=== PATIENT | female | born 1930 | race Caucasian/White ===

== ENCOUNTER 2016-07-16 11:55 | Observation (INO) | payer OTHER ==
[~2016-07-16] VITALS: Ht 162.6 cm; Wt 59.0 kg
[~2016-07-16 11:55] MED LIST: AMLO5TAB2 PO; ASPI-231 PO; CLON0.1T PO; LOVA40TA72 PO; MET50T PO; NITR-48 PO; ONDA4TAB8 SL
[2016-07-16 12:43] LABS: Basophils # (auto) 0 uL; Basophils % (auto) 0.3 % (0.0-2.0); Eosinophils # (auto) 0.1 uL; Eosinophils % (auto) 1.6 % (0.0-7.0); Hematocrit 28.4 % (36.0-46.0); Hemoglobin 9.4 g/dL (12.2-16.2); Lymphocytes # (auto) 1.5 uL; Mean Corpuscular Hemoglobin 29.4 pg (28.0-32.0); Mean Corpuscular Hgb Conc. 33.1 g/dL (32.0-36.0); Mean Corpuscular Volume 88.8 fL (80.0-100.0); Mean Platelet Volume 8.2 fL (7.4-10.4); Monocytes # (auto) 0.4 uL; Monocytes % (auto) 5.6 % (0.0-12.0); Neutrophils # (auto) 5.3 uL; Neutrophils % (auto) 72.5 % (37.0-80.0); Platelet Count (auto) 352 10^3/uL (140-450); Red Cell Distribution Width 15.4 % (11.6-16.0); White Blood Cell 7.3 10^3/uL (4.4-10.8)
[2016-07-16 13:04] LABS: Albumin 2.6 g/dL (3.4-5.0); Alkaline Phosphatase 75 U/L (45-117); Anion Gap 11 (5-15); Aspartate Aminotransferase 18 U/L (15-37); BUN/Creatinine Ratio 20.8; Bilirubin, Total 0.3 mg/dL (0.2-1.0); Blood Urea Nitrogen 20 mg/dL (7-18); Calcium 8.6 mg/dL (8.5-10.1); Carbon Dioxide 25 mmol/L (21-32); Chloride 107 mmol/L (98-107); GFR African American 71 mL/min; GFR Non-African American 59 mL/min; Glucose 103 mg/dL (74-106); Magnesium 2.2 mg/dL (1.6-2.6); Potassium 4.3 mmol/L (3.5-5.1); Sodium 143 mmol/L (136-145); Total Protein 6.4 g/dL (6.4-8.2)
[2016-07-16] MEDS ORDERED: ASPirin 81 mg TAB PO ONE (13:15)
[2016-07-16 14:11] LABS: INR 0.99 (0.9-1.15); Partial Thromboplastin Time 25.2 sec (22.64-33.71); Prothrombin Time 10.7 sec (9.37-12.3)
[2016-07-16 14:58] LABS: B-Type Natriuretic Peptide 268.93 pg/mL (0-100)
[2016-07-16 17:30] VITALS: BP 161/41
== END 2016-07-16 17:25 | disposition home or self-care (01) | DRG 204 ==
LOC: ER 11:55 → EDUNIT# 11:55 → EDBD 11:55 → OVERFLOW 13:09 → ER 17:25
PROVIDERS: ADMIT Family Medicine; ATTEND Family Medicine
DX: R06.02 Shortness of breath (principal); J44.9 Chronic obstructive pulmonary disease, unspecified; E78.5 Hyperlipidemia, unspecified; I10 Essential (primary) hypertension; I25.2 Old myocardial infarction; M85.80 Other specified disorders of bone density and structure, unspecified site; D50.9 Iron deficiency anemia, unspecified; R91.8 Other nonspecific abnormal finding of lung field; Z90.710 Acquired absence of both cervix and uterus
CPT/HCPCS: 36415; 71010; 80053; 83735; 83880; 84443; 84484; 85025; 85610; 85730; 99285; G0378

== ENCOUNTER 2017-04-22 14:51 | Emergency (ER) | payer OTHER ==
[~2017-04-22 14:51] MED LIST changes: +ONDA-101 SL; -ONDA4TAB8 SL
== END 2017-04-22 16:00 | disposition left against medical advice (07) ==
LOC: EDUNIT# 14:51 → ER 14:59
DX: R06.02 Shortness of breath (principal); Z53.21 Procedure and treatment not carried out due to patient leaving prior to being seen by health care provider
CPT/HCPCS: 93005

== ENCOUNTER 2017-07-29 19:07 | Emergency (ER) | payer OTHER ==
[~2017-07-29] VITALS: Ht 154.9 cm; Wt 63.5 kg
[2017-07-29 19:38] LABS: Basophils # (auto) 0.1 uL; Basophils % (auto) 0.8 % (0.0-2.0); Eosinophils # (auto) 0.4 uL; Eosinophils % (auto) 4.9 % (0.0-7.0); Hematocrit 30.6 % (36.0-46.0); Hemoglobin 9.9 g/dL (12.2-16.2); Lymphocytes # (auto) 1.9 uL; Lymphocytes % (auto) 26.8 % (10.0-50.0); Mean Corpuscular Hemoglobin 29.9 pg (28.0-32.0); Mean Corpuscular Hgb Conc. 32.3 g/dL (32.0-36.0); Mean Corpuscular Volume 92.6 fL (80.0-100.0); Monocytes # (auto) 0.7 uL; Monocytes % (auto) 9.2 % (0.0-12.0); Neutrophils # (auto) 4.2 uL; Neutrophils % (auto) 58.3 % (37.0-80.0); Nucleated Red Blood Cells % 0.1 %; Platelet Count (auto) 364 10^3/uL (140-450); White Blood Cell 7.2 10^3/uL (4.4-10.8)
[2017-07-29 19:54] LABS: INR 0.95 (0.9-1.15); Partial Thromboplastin Time 27.4 sec (22.64-33.71); Prothrombin Time 10.4 sec (9.37-12.3)
[2017-07-29 19:55] LABS: Alanine Aminotransferase 14 U/L (13-56); Albumin 2.9 g/dL (3.4-5.0); Anion Gap 9 (5-15); Aspartate Aminotransferase 19 U/L (15-37); BUN/Creatinine Ratio 19.3; Blood Urea Nitrogen 21 mg/dL (7-18); Calcium 8.5 mg/dL (8.5-10.1); Carbon Dioxide 24 mmol/L (21-32); Chloride 108 mmol/L (98-107); GFR African American 61 mL/min; GFR Non-African American 50 mL/min; Glucose 100 mg/dL (74-106); Magnesium 2.2 mg/dL (1.6-2.6); Potassium 3.8 mmol/L (3.5-5.1); Sodium 141 mmol/L (136-145)
[2017-07-29 20:00] LABS: Alkaline Phosphatase 110 U/L (45-117); Bilirubin, Total 0.2 mg/dL (0.2-1.0); Total Protein 7.3 g/dL (6.4-8.2)
[2017-07-29 23:11] LABS: Urine Bacteria FEW /hpf (None Seen); Urine Blood Negative /uL (Negative); Urine Specific Gravity 1.006 (1.001-1.035); Urine WBC 7 /hpf (0 - 5)
[2017-07-29] MEDS ORDERED: ETOMIDATE (2MG/ML) 20ML VIAL IV ONE (23:30)
[2017-07-30] MEDS ORDERED: cloNIDine HCL 0.1 MG TAB PO ONE
[2017-07-30] MEDS ORDERED: HYDROcodone-ACET 5/325MG TAB PO ONE
[2017-07-30 01:09] VITALS: BP 144/67
[2017-08-02] MEDS ORDERED: TRAZ-181 PO (06:58)
[2017-08-02] MEDS ORDERED: SIME80CH6 PO (06:58)
[2017-08-02] MEDS ORDERED: CHOL20007 PO (06:58)
[2017-08-02] MEDS ORDERED: METHPOW XX (06:58)
[2017-08-02] MEDS ORDERED: RANI150C11 PO (06:58)
[2017-08-02] MEDS ORDERED: METH10TA6 PO (06:58)
[2017-08-02] MEDS ORDERED: SERT-274 PO (06:58)
[2017-08-02] MEDS ORDERED: FLUT250M2 INH (06:58)
[2017-08-02] MEDS ORDERED: HYDR50TA15 PO (06:58)
[2017-08-02] MEDS ORDERED: MELA3TAB27 PO ×3 (07:02→12:05)
[2017-08-02] MEDS ORDERED: HYDR10TA26 PO (12:05)
[2017-08-02] MEDS ORDERED: AMLO5TAB2 PO (12:05)
[2017-08-02] MEDS ORDERED: LOVA20TA4 PO (12:05)
[2017-08-02] MEDS ORDERED: METO25TA62 PO (12:07)
[2017-08-02] MEDS ORDERED: TRAZ50TA2 PO (18:26)
== END 2017-07-30 01:35 | disposition home or self-care (01) ==
LOC: EDUNIT# 19:07 → ER 19:07 → EDBD 19:07 → ER 07-30 01:35
DX: S52.501A Unspecified fracture of the lower end of right radius, initial encounter for closed fracture (principal); S05.41XA Penetrating wound of orbit with or without foreign body, right eye, initial encounter; S20.219A Contusion of unspecified front wall of thorax, initial encounter; S16.1XXA Strain of muscle, fascia and tendon at neck level, initial encounter; I25.2 Old myocardial infarction; E78.00 Pure hypercholesterolemia, unspecified; I12.9 Hypertensive chronic kidney disease with stage 1 through stage 4 chronic kidney disease, or unspecified chronic kidney disease; N18.9 Chronic kidney disease, unspecified; Z90.710 Acquired absence of both cervix and uterus; Z86.73 Personal history of transient ischemic attack (TIA), and cerebral infarction without residual deficits; Z88.0 Allergy status to penicillin; Z88.1 Allergy status to other antibiotic agents; Z88.8 Allergy status to other drugs, medicaments and biological substances; Z79.82 Long term (current) use of aspirin; Z79.899 Other long term (current) drug therapy; W10.9XXA Fall (on) (from) unspecified stairs and steps, initial encounter; Y93.89 Activity, other specified; Y92.89 Other specified places as the place of occurrence of the external cause; Y99.8 Other external cause status
CPT/HCPCS: 25605; 36415; 70450; 70486; 71101; 72125; 72192; 73100; 73590; 80053; 81001; 83735; 83880; 84484; 85025; 85610; 85730; 93005